=== PATIENT | male | born 1965 | race Caucasian/White ===

== ENCOUNTER 2019-09-20 19:09 | Emergency (ER) | payer BC, MEDICAID ==
[~2019-09-20] VITALS: Ht 177.8 cm; Wt 68.0 kg
--- NOTE | 2019-09-20 19:23 | NUR ---
[place] RN: 54 Y/O MALE PT CIARAN PORRAS FROM [facility] FOR A THROAT ABSCESS. THE PT RECENTLY HAD SURGERY TO REMOVE CANCER (07/14) AND HAS HAD LEFT SIDED FACIAL SWELLING WITH DIFFICULTY SWALLOWING X A FEW DAYS. UPON ARRIVAL TO THE ER, THE PT IS CAOX3, [facility] OF 15. PT MANAGING SECRETIONS AT THIS TIME. NO DIFFICULTY NOTED. RA SATS 86%, PLACED ON O2 VIA NC @ 3LPM. RESPIRATIONS EVEN AND UNLABORED. PT DENIES ANY DIFFICULTY BREATHING. SATS INCREASED WITH O2. ALL MONITORING EQUIPMENT APPLIED. VITALS STABLE. CALL LIGHT WITHIN REACH. REPORT TO PRIMARY, RNJOYCE
--- NOTE | 2019-09-20 20:18 | NUR ---
PT UP TO RR WITH STEADY GAIT
[2019-09-20 20:26] VITALS: BP 111/50
[2019-09-20] MEDS ORDERED: HYDROmorphone 1 MG/ML, 1ML INJ ONE (20:58)
[2019-09-20] MEDS ORDERED: ONDANSETRON 2MG/ML, 2ML ONE (20:58)
[2019-09-20] MEDS ORDERED: ONDANSETRON 2MG/ML, 2ML IVPush ONE (21:00)
[2019-09-20] MEDS ORDERED: AMPICILLIN/SULBACTAM 3 GM in SODIUM CHLORIDE 0.9% 100 ML IV ONE (21:00)
[2019-09-20] MEDS ORDERED: HYDROmorphone 1 MG/ML, 1ML INJ IV ONE (21:00)
--- NOTE | 2019-09-20 21:05 | NUR ---
PT MEDICATED PER MAR
== END 2019-09-20 21:21 | disposition home or self-care (01) ==
LOC: ED 20:50
DX: L02.11 Cutaneous abscess of neck (principal); M27.2 Inflammatory conditions of jaws; Z21 Asymptomatic human immunodeficiency virus [HIV] infection status; Z85.818 Personal history of malignant neoplasm of other sites of lip, oral cavity, and pharynx
CPT/HCPCS: 96365; 96375; 99284; J0295; J1170; J2405; 99283; 99285